=== PATIENT | male | born 1950 | race Caucasian/White ===

== ENCOUNTER 2021-12-21 15:38 | Emergency (ER) | payer BC, MEDICARE ==
[~2021-12-21] VITALS: Ht 177.8 cm; Wt 100.0 kg
[2021-12-21] MEDS ORDERED: METO50 PO (15:43)
[2021-12-21] MEDS ORDERED: PERTUSS(ACELL),DIPH,TET VAC/PF 0.5 ML SYRINGE IM. ONE (16:00)
[2021-12-21] MEDS ORDERED: ACETAMINOPHEN 500 MG TABLET PO ONE (16:00)
[2021-12-21] MEDS ORDERED: LIDOCAINE 1% 10 ML VIAL PERC ONE (16:15)
[2021-12-21 16:33] VITALS: BP 122/81
== END 2021-12-21 16:48 | disposition home or self-care (01) ==
LOC: EMS 15:38
DX: S61.215A Laceration without foreign body of left ring finger without damage to nail, initial encounter (principal); I10 Essential (primary) hypertension; Z87.448 Personal history of other diseases of urinary system; Z98.890 Other specified postprocedural states; X58.XXXA Exposure to other specified factors, initial encounter; Y93.89 Activity, other specified; Y92.89 Other specified places as the place of occurrence of the external cause; Y99.8 Other external cause status
CPT/HCPCS: 12002; 90471; 90715; 99283; J3490

== ENCOUNTER 2021-12-28 10:46 | Emergency (ER) | payer MEDICARE ==
[~2021-12-28] VITALS: Ht 177.8 cm; Wt 100.0 kg
[~2021-12-28 10:46] MED LIST: METO50 PO
[2021-12-28 11:07] VITALS: BP 110/59
[2021-12-28] MEDS ORDERED: MUPI1OIN5 TP (11:32)
== END 2021-12-28 12:29 | disposition home or self-care (01) ==
LOC: EMS 10:46
DX: S61.215D Laceration without foreign body of left ring finger without damage to nail, subsequent encounter (principal); I10 Essential (primary) hypertension; X58.XXXD Exposure to other specified factors, subsequent encounter
CPT/HCPCS: 99283; Z7502

== ENCOUNTER 2022-01-01 12:47 | Emergency (ER) | payer MEDICARE ==
[~2022-01-01] VITALS: Ht 177.8 cm; Wt 100.0 kg
[~2022-01-01 12:47] MED LIST changes: +MUPI1OIN5 TP
[2022-01-01] MEDS ORDERED: BACITRACIN 0.9 GM PACKET OINTMENT TP ONE (15:15)
[2022-01-01] MEDS ORDERED: POTA-185 PO (15:20)
[2022-01-01] MEDS ORDERED: DOCU100C33 PO (15:20)
[2022-01-01] MEDS ORDERED: TAMS-13 PO (15:20)
[2022-01-01] MEDS ORDERED: METO-391 PO (15:20)
[2022-01-01] MEDS ORDERED: METF-1211 PO (15:20)
[2022-01-01] MEDS ORDERED: ATOR-2 PO (15:20)
[2022-01-01] MEDS ORDERED: MECL-160 PO (15:20)
[2022-01-01] MEDS ORDERED: KPHOS250 PO (15:21)
[2022-01-01] MEDS ORDERED: HYDR50TA PO (15:21)
[2022-01-01] MEDS ORDERED: OMEP40CA21 PO (15:21)
[2022-01-01 15:26] VITALS: BP 135/69
== END 2022-01-01 15:47 | disposition home or self-care (01) ==
LOC: EMS 12:47
DX: S61.215D Laceration without foreign body of left ring finger without damage to nail, subsequent encounter (principal); I10 Essential (primary) hypertension; Z87.448 Personal history of other diseases of urinary system; Z85.46 Personal history of malignant neoplasm of prostate; Z98.890 Other specified postprocedural states; X58.XXXD Exposure to other specified factors, subsequent encounter
CPT/HCPCS: 99281; 99282; Z7502; Z7610